=== PATIENT | female | born 1990 | race Caucasian/White ===

== ENCOUNTER 2024-04-16 14:10 | Emergency (ER) | payer OTHER ==
[2024-04-16 15:15] LABS: Bilirubin Negative (Negative); Blood, Urine Moderate (Negative); Clarity Clear (Clear); Glucose, Urine (Dipstick) Negative (Negative); Ketone, Urine Negative (Negative); Leukocyte Negative (Negative); Nitrite Negative (Negative); Protein, Urine (Dipstick) Negative (Neg-Trace); Urobilinogen 0.2 mg/dL (Less than 2); pH, Urine 6.5 (5.0-9.0)
[2024-04-16 15:23] LABS: Bacteria/HPF 2+ HPF (None Seen); CAUTI Indications for Culture Pregnancy; RBC/HPF 0-3 HPF (0-3); Squamous Epithelial 0-3 HPF (0-3); WBC/HPF 0-3 HPF (0-3)
[2024-04-16 15:24] LABS: Urine Culture Reflex No No
[2024-04-16 15:29] LABS: Urine Culture Reflex Yes Yes
== END 2024-04-16 16:23 | disposition short-term general hospital (02) ==
LOC: BURERS 14:10
DX: O20.9 Hemorrhage in early pregnancy, unspecified (principal); Z3A.09 9 weeks gestation of pregnancy
CPT/HCPCS: 36415; 81001; 84702; 86900; 86901; 87086; 99284